=== PATIENT | female | born 1955 | race Caucasian/White ===

== ENCOUNTER → 2019-03-24 09:31 | Outpatient (CLI) | payer OTHER, SELFPAY ==
[2019-03-24 10:10] LABS: Add Manual Diff / Slide Review NO; Basophils Absolute Auto 0 /uL (0-100); Basophils Percent Auto 0.5 % (0-2); Eosinophils Absolute Auto 200 /uL (0-450); Eosinophils Percent Auto 4.6 % (2-4); Hematocrit 41.7 % (36-46); Hemoglobin 14.1 g/dL (12.0-16.0); Lymphocytes Absolute Auto 1600 /uL (1100-4500); Mean Corpuscular HGB Conc 33.9 % (30-36); Mean Corpuscular Hemoglobin 31.2 PG (26-34); Mean Corpuscular Volume 92.1 fL (80-100); Monocytes Absolute Auto 300 /uL (0-900); Monocytes Percent Auto 6.9 % (3-14); Neutrophils Absolute Auto 2100 /uL (1500-7000); Platelet Count 222 X10^3/uL (150-400); Red Blood Cell Count 4.53 X10^6/uL (4.0-5.2); Red Cell Distribution Width 12.5 % (11.6-14.8); White Blood Cell Count 4.2 X10^3/uL (4.5-11.0)
[2019-03-24 10:47] LABS: Albumin 4.5 g/dL (3.5-5.0); Albumin Globulin Ratio 1.6 (1.0-2.8); Alkaline Phosphatase 76 U/L (38-126); Aspartate Aminotransferase 27 IU/L (14-36); BUN Creatinine Ratio 25.7 (6-22); Bilirubin Total 0.6 mg/dL (0.2-1.3); Blood Urea Nitrogen 18 mg/dL (7-17); Calcium 9.8 mg/dL (8.4-10.2); Carbon Dioxide 30 mmol/L (22-32); Chloride 100 mmol/L (98-107); Cholesterol 250 mg/dL (140-199); Estimated Glomerular Filt Rate > 60.0 mL/min (>60); Globulin 2.9 g/dL (1.7-4.1); Glucose 93 mg/dL (80-110); HDL Cholesterol 91 mg/dL (40-60); HEMOLYSIS < 15 (0-50); LDL Cholesterol Calculated 136 mg/dL (<100); Magnesium 2.2 mg/dL (1.6-2.3); Potassium 4.2 mmol/L (3.4-5.1); Sodium 138 mmol/L (137-145); Total Protein 7.4 g/dL (6.3-8.2); Triglycerides 115 mg/dL (35-150)
[2019-03-24 10:58] LABS: Alanine Aminotransferase 7 IU/L (9-52)
[2019-03-24 11:02] LABS: Vitamin D 25 Hydroxy (D3) 35.9 ng/mL (30.0-100.0)
[2019-03-24 11:05] LABS: Appearance Urine UA CLEAR; Bilirubin Urine UA NEGATIVE (NEGATIVE); Glucose Urine UA NEGATIVE (Negative); Ketones Urine UA NEGATIVE (NEGATIVE); Leukocyte Esterase Urine UA NEGATIVE (NEGATIVE); Nitrite Urine UA NEGATIVE (Negative); Occult Blood Urine UA TRACE-LYSED (Negative); Protein Urine UA NEGATIVE (Negative); Specific Gravity Urine UA <=1.005 (1.000-1.035); Urobilinogen Urine UA 0.2 E.U./dL (0.2)
[2019-03-24 11:27] LABS: Color Urine UA Straw
[2019-03-24 11:45] LABS: Bacteria Urine Few (2-10); Culture Indicated Urine Cult Not Indicated; RBC Urine 0-1/HPF (0-5/HPF); Squamous Epithelial Cell Urine 0-1 /HPF (0-5/HPF); WBC Urine 0-1/HPF (0-5/HPF)
[2019-03-26 14:40] LABS: Ionized Calcium 5.1 mg/dL (4.8-5.6)
[2019-03-26 15:29] LABS: Parathyroid Hormone Int 59 pg/mL (14-64)
== END ==
PROVIDERS: Visit Provider Internal Medicine
DX: Z00.00 Encounter for general adult medical examination without abnormal findings (principal); E83.52 Hypercalcemia; R03.0 Elevated blood-pressure reading, without diagnosis of hypertension; E78.5 Hyperlipidemia, unspecified; E55.9 Vitamin D deficiency, unspecified; R53.83 Other fatigue
CPT/HCPCS: 36415; 80053; 80061; 81001; 82306; 82330; 83735; 83970; 85025

== ENCOUNTER → 2019-07-28 11:13 | Outpatient (CLI) | payer OTHER, SELFPAY ==
--- NOTE | 2019-07-28 | DI.MG.S_ITS ---
BILATERAL DIGITAL SCREENING MAMMOGRAM 3D/2D WITH CAD: 07/28/2019 CLINICAL: Routine screening. Comparison is made to exams dated: 04/25/2012 mammogram and 04/25/2015 mammogram - [facility]. The tissue of both breasts is extremely dense, which lowers the sensitivity of mammography. Current study was also evaluated with a Computer Aided Detection (CAD) system. No significant masses, calcifications, or other findings are seen in either breast. There has been no significant interval change. IMPRESSION: NEGATIVE There is no mammographic evidence of malignancy. A 1 year screening mammogram is recommended. This exam was interpreted at Station ID: [id number]. NOTE: For mammograms, a report in lay terms will be sent to the patient. Approximately 15% of breast malignancies will not be visualized mammographically. In the management of a palpable breast mass, a negative mammogram must not discourage biopsy of a clinically suspicious lesion. Electronically Signed By: Holly nguyen/sylvie:07/28/2019 12:22:51 letter sent: Normal Exam ACR BI-RADS Category 1: Negative [id number]
== END ==
PROVIDERS: PCP Internal Medicine; Visit Provider Internal Medicine
DX: Z12.31 Encounter for screening mammogram for malignant neoplasm of breast (principal)
CPT/HCPCS: 77063; 77067

== ENCOUNTER → 2020-03-14 08:57 | Outpatient (CLI) | payer OTHER, SELFPAY ==
[2020-03-14 09:23] LABS: Add Manual Diff / Slide Review NO; Basophils Absolute Auto 0 /uL (0-100); Basophils Percent Auto 0.4 % (0-2); Eosinophils Absolute Auto 200 /uL (0-450); Eosinophils Percent Auto 3.7 % (2-4); Hematocrit 42.5 % (36-46); Hemoglobin 14.2 g/dL (12.0-16.0); Lymphocytes Absolute Auto 1400 /uL (1100-4500); Mean Corpuscular HGB Conc 33.4 % (30-36); Mean Corpuscular Hemoglobin 30.9 PG (26-34); Mean Corpuscular Volume 92.4 fL (80-100); Monocytes Absolute Auto 400 /uL (0-900); Monocytes Percent Auto 7.7 % (3-14); Neutrophils Absolute Auto 2600 /uL (1500-7000); Neutrophils Percent Auto 57.2 % (50-75); Platelet Count 229 X10^3/uL (150-400); Red Cell Distribution Width 12.5 % (11.6-14.8); White Blood Cell Count 4.6 X10^3/uL (4.5-11.0)
[2020-03-14 09:48] LABS: Alanine Aminotransferase 9 IU/L (<35); Albumin 4.6 g/dL (3.5-5.0); Albumin Globulin Ratio 1.4 (1.0-2.8); Alkaline Phosphatase 76 U/L (38-126); Aspartate Aminotransferase 27 IU/L (14-36); BUN Creatinine Ratio 19.1 (6-22); Bilirubin Total 0.8 mg/dL (0.2-1.3); Blood Urea Nitrogen 13 mg/dL (7-17); Calcium 9.5 mg/dL (8.4-10.2); Carbon Dioxide 30 mmol/L (22-32); Chloride 99 mmol/L (98-107); Cholesterol 251 mg/dL (140-199); Estimated Glomerular Filt Rate > 60.0 mL/min (>60); Globulin 3.2 g/dL (1.7-4.1); Glucose 111 mg/dL (80-110); HDL Cholesterol 84 mg/dL (40-60); HEMOLYSIS < 15 (0-50); LDL Cholesterol Calculated 138 mg/dL (<100); Potassium 4.1 mmol/L (3.4-5.1); Sodium 136 mmol/L (137-145); Total Protein 7.8 g/dL (6.3-8.2); Triglycerides 145 mg/dL (35-150)
[2020-03-14 09:59] LABS: Vitamin D 25 Hydroxy (D3) 36.3 ng/mL (30.0-100.0)
== END ==
PROVIDERS: PCP Internal Medicine; Referring Provider Internal Medicine; Visit Provider Internal Medicine
DX: E78.6 Lipoprotein deficiency (principal); E55.9 Vitamin D deficiency, unspecified; R03.0 Elevated blood-pressure reading, without diagnosis of hypertension; E78.5 Hyperlipidemia, unspecified
CPT/HCPCS: 36415; 80053; 80061; 82306; 85025

== ENCOUNTER → 2020-05-10 13:44 | Outpatient (CLI) | payer OTHER, SELFPAY | PROVIDERS: PCP Internal Medicine; Referring Provider Internal Medicine; Visit Provider Internal Medicine | DX: Z13.820 Encounter for screening for osteoporosis (principal); M85.851 Other specified disorders of bone density and structure, right thigh; Z78.0 Asymptomatic menopausal state; Z87.891 Personal history of nicotine dependence; Z82.62 Family history of osteoporosis | CPT/HCPCS: 77080 ==

== ENCOUNTER → 2020-12-20 16:32 | Outpatient (CLI) | payer OTHER, SELFPAY ==
[2020-12-20 18:26] LABS: Hemoglobin A1C% w Est Avg Glu 5.2 % (4.0-6.0)
[2020-12-20 18:39] LABS: Alanine Aminotransferase 8 IU/L (<35); Albumin 4.5 g/dL (3.5-5.0); Albumin Globulin Ratio 1.4 (1.0-2.8); Alkaline Phosphatase 90 U/L (38-126); Aspartate Aminotransferase 29 IU/L (14-36); BUN Creatinine Ratio 25.3 (6-22); Bilirubin Total 0.4 mg/dL (0.2-1.3); Blood Urea Nitrogen 20 mg/dL (7-17); Carbon Dioxide 30 mmol/L (22-32); Chloride 101 mmol/L (98-107); Estimated Glomerular Filt Rate > 60.0 mL/min (>60); Globulin 3.3 g/dL (1.7-4.1); Glucose 79 mg/dL (80-110); HEMOLYSIS < 15 (0-50); Potassium 4.1 mmol/L (3.4-5.1); Sodium 140 mmol/L (137-145); Total Protein 7.8 g/dL (6.3-8.2)
== END ==
PROVIDERS: PCP Internal Medicine; Referring Provider Internal Medicine; Visit Provider Internal Medicine
DX: E78.2 Mixed hyperlipidemia (principal); R73.9 Hyperglycemia, unspecified
CPT/HCPCS: 36415; 80053; 83036

== ENCOUNTER → 2020-12-21 06:57 | Outpatient (CLI) | payer OTHER, SELFPAY ==
[2020-12-22 22:53] LABS: TSH w/ Reflex to FT4 2.54 uIU/mL (0.47-4.68)
== END ==
PROVIDERS: PCP Internal Medicine; Visit Provider Internal Medicine
DX: R00.2 Palpitations (principal)
CPT/HCPCS: 84443

== ENCOUNTER → 2021-02-20 08:41 | Outpatient (CLI) | payer OTHER, SELFPAY ==
[2021-02-20 10:06] LABS: Cholesterol 239 mg/dL (140-199); HDL Cholesterol 74 mg/dL (40-60); LDL Cholesterol Calculated 125 mg/dL (<100); Triglycerides 202 mg/dL (35-150)
== END ==
PROVIDERS: PCP Internal Medicine; Referring Provider Internal Medicine; Visit Provider Internal Medicine
DX: M85.89 Other specified disorders of bone density and structure, multiple sites (principal); Z13.220 Encounter for screening for lipoid disorders; Z13.6 Encounter for screening for cardiovascular disorders
CPT/HCPCS: 36415; 80061; 82306

== ENCOUNTER → 2021-03-14 10:59 | Outpatient (CLI) | payer OTHER, SELFPAY ==
[2021-03-14 12:08] LABS: COVID19 -Nasal RAPID Negative (Negative)
== END ==
PROVIDERS: PCP Internal Medicine; Visit Provider Physician Assistant
DX: Z20.822 Contact with and (suspected) exposure to COVID-19 (principal); J02.9 Acute pharyngitis, unspecified
CPT/HCPCS: 87635

== ENCOUNTER 2022-02-08 13:41 | Emergency (ER) | payer MEDICARE, SELFPAY ==
[2022-02-08] VITALS (11 sets, daily range): BP systolic 184–219; BP diastolic 81–93; PULSE 92–132; RESP 11–28; TEMP 36.1; O2SAT 90–99; BMI 25.2
--- NOTE | 2022-02-08 13:57 | DI.RAD.S_ITS ---
PROCEDURE: XR ELBOW LT INDICATIONS: fall bilateral elbow pain TECHNIQUE: 1 lateral view of the left elbow was acquired. COMPARISON: [facility], CR, XR ELBOW RT 2V, 02/08/2022, 19:12. FINDINGS: Bones: There is a prominent displaced proximal ulnar fracture, with dislocation, with the radial head seen inferior and slightly posterior to the epicondyles. Soft tissues: Associated soft tissue swelling is seen. IMPRESSION: Prominent left proximal ulna fracture, with dislocation. Dictated by: Damian Coy M.D. on 02/08/2022 at 18:54 Approved by: Damian Coy M.D. on 02/08/2022 at 18:55
--- NOTE | 2022-02-08 13:57 | DI.RAD.S_ITS ---
PROCEDURE: XR ELBOW INDICATIONS: fall bilateral elbow pain TECHNIQUE: 1 views of the elbow were acquired. COMPARISON: [facility], CR, XR ELBOW LT 2V, 02/08/2022, 19:12. FINDINGS: Bones: There is a comminuted, prominently displaced fracture of the olecranon. Soft tissues: Associated soft tissue swelling is seen. IMPRESSION: Prominent displaced, comminuted fracture of the olecranon, with associated soft tissue swelling. Dictated by: Damian Coy M.D. on 02/08/2022 at 18:52 Approved by: Damian Coy M.D. on 02/08/2022 at 18:53
[2022-02-08] MEDS: MORPHINE 4 MG/ML INJ IV (18:14)
[2022-02-08] MEDS: ONDANSETRON 4 MG/2 ML INJ IV ×2 (18:15→23:35)
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
--- NOTE | 2022-02-08 20:51 | PC.NURSE ---
Patient and family updated on plan of care, requesting diagnosis information, educated on wait for physician read. Understanding verbalized. Pt family asking if pt should be drinking fluids, educated on hold until results and physician approval.
[2022-02-08] MEDS: propofoL 200 MG/20 ML VIAL 93 MG IV (23:48)
[2022-02-08] MEDS: KETAMINE 500 MG/5 ML INJ 93 MG IV (23:48)
--- NOTE | 2022-02-08 23:54 | DI.RAD.S_ITS ---
PROCEDURE: XR ELBOW LT 2V INDICATIONS: Status post reduction TECHNIQUE: 2 views of the elbow were acquired. COMPARISON: [facility], CR, XR ELBOW LT 2V, 02/08/2022, 19:12. FINDINGS: Displaced fracture of the ulna. Persistent complete dislocation of the radius. Suspected fracture of the radial head. Large elbow joint effusion. Circumferential soft tissue swelling. IMPRESSION: Persistent fracture dislocation of the ulna and radius with unchanged fractures of the ulna and suspected fracture of the radial head. Dictated by: Samm Murphy M.D. on 02/09/2022 at 0:12 Approved by: Samm Murphy M.D. on 02/09/2022 at 0:14
[2022-02-09] VITALS (13 sets, daily range): BP systolic 142–212; BP diastolic 69–108; PULSE 82–132; RESP 9–25; O2SAT 95–100
--- NOTE | 2022-02-09 00:05 | PC.NURSE ---
At this time, pt is 15min post-sedation and is alrt and oriented, although still tripping from the meds, per pt report. Pt weaned off oxygen, to bedside.
--- NOTE | 2022-02-09 00:16 | DI.CT.S_ITS ---
PROCEDURE: CT UE LT WO CON INDICATIONS: complex fracture TECHNIQUE: Noncontrast 1-1.5 mm axial sections were acquired through the elbow joint, with coronal and sagittal reformats. COMPARISON: None. FINDINGS: Comminuted and displaced intra-articular fracture of the posterior ulna and olecranon with intra-articular extension. Partial dislocation of the distal humeral articular surface there is also dislocation of the radial head without radial fracture. A tiny intra-articular loose body is seen posterior to the humerus on series 3 image 164. There is another tiny fracture fragment measuring 4 mm on series 3, image 124. IMPRESSION: Ulnohumeral and radial humeral dislocation with comminuted and displaced posterior ulnar fractures involving the olecranon and articular surface. Dictated by: Samm Murphy M.D. on 02/09/2022 at 1:49 Approved by: Samm Murphy M.D. on 02/09/2022 at 1:53
--- NOTE | 2022-02-09 01:12 | PC.NURSE ---
Pt VS trending back to normal, pt able to maintain airway on RA. Pt feels like she is back to normal cognition, agrees. Pt reports moderate/severe pain in left arm. Pt to go to CT soon.
[2022-02-09] MEDS: OXYCODONE/ACETAMINOPHEN 5/325 TABLET 1 TAB PO (01:52)
--- NOTE | 2022-02-09 03:13 | PC.NURSE ---
Pt tolerated walking in hallway roughly 40ft withoutcomplaint. Pt remains at 7-8/10 pain, but reports she thinks she can manage this at home with pain medications, rest, and ice. Pt denies dizziness/lightheadedness, VS stable on RA.
[2022-02-09] MEDS: OXYCODONE/APAP 5/325 PREPACK 1 BOTTLE MISC (03:21)
[2022-02-09] MEDS: ONDANSETRON 4 MG ODT PREPACK 1 BOTTLE MISC (03:21)
== END 2022-02-09 03:38 | disposition home or self-care (01) ==
PROVIDERS: Emergency Provider Emergency Medicine; PCP Internal Medicine
DX: S52.021A Displaced fracture of olecranon process without intraarticular extension of right ulna, initial encounter for closed fracture (principal); W19.XXXA Unspecified fall, initial encounter
CPT/HCPCS: 24620; 29105; 36415; 73070; 73200; 96374; 96375; 96376; 99152; 99284; 99285; J2270; J2405; J2704

== ENCOUNTER → 2022-02-13 11:20 | Outpatient (CLI) | payer MEDICARE, SELFPAY ==
[2022-02-13 12:23] LABS: COVID19 -Nasal RAPID Negative (Negative)
== END ==
PROVIDERS: PCP Internal Medicine; Referring Provider Orthopaedic Surgery Foot and Ankle Surgery; Visit Provider Orthopaedic Surgery Foot and Ankle Surgery
DX: Z20.822 Contact with and (suspected) exposure to COVID-19 (principal)
CPT/HCPCS: 87635; C9803

== ENCOUNTER 2022-02-15 10:43 | Day surgery (SDC) | payer MEDICARE, SELFPAY ==
[2022-02-15] VITALS (8 sets, daily range): BP systolic 169–189; BP diastolic 82–101; PULSE 100–114; RESP 11–28; TEMP 36.1–36.6; O2SAT 97–99; BMI 25.2
[2022-02-15] MEDS: LACTATED RINGERS 1,000 ML 42 ML IV ×3 (11:49→16:52)
--- NOTE | 2022-02-15 12:09 | PM.PREOP ---
Pre-operative Note COVID-19 COVID-19 status: Negative Interval Note History & Physical reviewed/Exam performed by Physician: Yes Changes to H&P: No
--- NOTE | 2022-02-15 12:30 | DI.RAD.S_ITS ---
PROCEDURE: XR ELBOW LT MIN 3V INDICATIONS: FX REPAIR TECHNIQUE: 4 spot fluoroscopic intraoperative images of the elbow were acquired. COMPARISON: [facility], CR, XR ELBOW RT MIN 3V, 02/15/2022, 15:11. [facility], CR, XR ELBOW LT 2V, 02/08/2022, 23:34. FINDINGS: Spot fluoroscopic intraoperative images demonstrate olecranon fracture fixation with a posterior plate and screw construct. Alignment of osseous structures has improved when compared to the preoperative exam. IMPRESSION: Status post internal fixation of the previously seen proximal ulnar fracture with improved alignment. Dictated by: Jonn Jung M.D. on 02/16/2022 at 9:12 Approved by: Jonn Jung M.D. on 02/16/2022 at 9:14
[2022-02-15] MEDS: CEFAZOLIN 2 GM IN 0.9 % NACL 100 ML IV (13:00)
--- NOTE | 2022-02-15 13:39 | SUR.OPER ---
Prone on padded OR bed, head in foam head support, gel chest rolls, gel pad under knees, pillow under lower legs, toes free of pressure, arms draped free on padded arm boards at <90 degrees abduction. Safety belt at thigh. tape over lower legs
[2022-02-15] MEDS: BUPIVACAINE 0.5% W/ EPI (PF) 30 ML VIAL INJ (13:51)
--- NOTE | 2022-02-15 14:30 | DI.RAD.S_ITS ---
PROCEDURE: XR ELBOW RT MIN 3V INDICATIONS: RT FX ELBOW FX REPAIR TECHNIQUE: 5 intraoperative views of the elbow were acquired. COMPARISON: None. FINDINGS: Bones: ORIF of the olecranon has been performed. Alignment is nearly anatomic. No suspicious bony lesions. Soft tissues: No suspicious soft tissue calcifications. IMPRESSION: ORIF of the olecranon. Dictated by: Jerson Vera M.D. on 02/15/2022 at 16:23 Transcribed by: LYNNE on 02/15/2022 at 16:23 Approved by: Jerson Vera M.D. on 02/15/2022 at 16:57
[2022-02-15] MEDS: hydrOXYzine pamoate 25 MG CAPSULE PO (16:56)
[2022-02-15] MEDS: OXYCODONE IR 5 MG TABLET PO ×2 (16:56→17:22)
[2022-02-15] MEDS: ONDANSETRON 4 MG/2 ML INJ IV (16:56)
[2022-02-15] MEDS: HYDROMORPHONE 2 MG INJ IV (16:57)
--- NOTE | 2022-02-15 17:10 | P.OP_ITS ---
Operative Date/Time/Diagnoses Date of procedure: 02/15/22 Time of procedure: 13:00 Pre-op diagnosis: 1. Left closed Monteggia fracture dislocation S52.272A--LT 2. Right olecranon fracture S52.021A--RT Post-op diagnosis: same Procedure & Clinicians Procedure: 1. Open reduction internal fixation Monteggia fracture, left CPT code 60802 2. Open reduction internal fixation olecranon fracture, right CPT code 23149 Same procedure as scheduled: Yes Indications: The patient is a 66-year-old ambidextrous female that sustained right and left elbow injuries in a ground level fall. She sustained a displaced left Monteggia fracture dislocation with fracture of the proximal left ulna and dislocation posteriorly of the radial head. And she sustained a displaced olecranon fracture of the right elbow. She was seen and [facility] and splinted. She presents today for open reduction internal fixation of her left and her right elbow fractures. We discussed surgery benefits to restore alignment, joint reduction and help return of function and reduce the risk of posttraumatic arthritis and dysfunction. The risks and benefits of the procedure have been discussed with the patient given the opportunity to ask questions. The risks of surgery include but are not limited to infection, malunion, nonunion, persistence of pain, damage to nerves and blood vessels, posttraumatic arthritis, DVT, PE, cardiopulmonary complications and . The patient expressed a thorough understanding of the risks and benefits of surgery and has elected to proceed. Consent was signed in the office. Surgeon: Dione Nye Click Yes if Unassisted: Yes Anesthesia Type: General and Local Operative Notes Findings: Left elbow: Displaced proximal ulna fracture and posterior radial head dislocation. On positioning intraoperatively radial head was able to be reduced. After the ulna fracture was exposed this was clamped in place and fixed with a [employer] Evos 5 hole locking plate. Once the ulna fracture was secured the radial head was noted to be concentrically reduced. The elbow was taken through range of motion. Full pronation supination flexion and extension were achieved without any mechanical blocks. Right elbow: Displaced olecranon fracture was exposed and cleaned. There was comminution of the olecranon this was reduced and held with wires and clamps. A 3 hole [employer] [place] olecranon plate was placed to the bone the split in the triceps. The separate smaller lateral comminuted fragment was then secured with a inter frag screws 2.0. Once this was completed remainder of the locking and nonlocking screws were placed. The elbow was taken through range of motion and no mechanical blocks demonstrated. At anatomic alignment was restored. Closure Type: primary Specimen(s): none sent Prosthetic devices, grafts, tissues, transplants, or devices: Left elbow: Townsend [employer] nephew evos 5 hole olecranon plate, left 3.5 locking screws: 16 mmx1 3.5 nonlocking screws: 14 mm, 15 mm, 26 mm 2.7 nonlocking screw 26 mm 2.7 locking screw 13 mm, 15 mm Right elbow [employer] Evos 3 hole olecranon plate, right 3.5 locking screws 20mmx1 3.5 nonlocking screw 20 mm x 1 2.7 nonlocking screw 20 mm x 1 2.7 locking screws 18 mm, 20 mm, 40 mm Estimated Blood Loss (mL): 50 Blood products transfused: none Tourniquet time (min): 53 Procedure in detail: Patient was seen in the preoperative area the site of surgery marked informed consent confirmed. She was brought back to operating room by anesthesia team positioned supine on the operative table. General anesthetic was administered. Attention was 1st turned to the left Monteggia fracture dislocation. Patient was positioned into the prone position on the operative table. All bony prominences well padded. A well-padded nonsterile brachial tourniquet was placed. The left arm was draped over a radiolucent arm board and stack of blankets. Once the patient was secured the C-arm was brought in to make sure we could get appropriate imaging. Once this was completed. A Formal time-out procedure was performed confirming the patient's side and site of surgery and is administration of appropriate preoperative antibiotic. All were in agreement. Implants were in the room accounted for. Attention turned to the left arm. The Esmarch was used for exsanguination the tourniquet raised on the arm to 250 mmHg and stayed there for 53 minutes. A typical posterior approach the left groin on was taken this was midline through the distal triceps and a curved around the olecranon laterally and then continued along the subcutaneous border of the ulna distally. Incision was taken down through the skin subcutaneous tissues. The olecranon bursa was retracted medially. The fracture of the proximal ulna was exposed through the interval between the ECU and FCU. The fracture was cleaned and then reduced and clamped in place. C-arm confirmed on reduction of the ulna the radial head also was reduced to the capitellum in the AP and lateral planes. Next the 5 hole left side olecranon plate from the Evos set was fit to the fracture this was appropriate length. The triceps was split and the proximal and the plate was fit under this and provisionally secured to the bone. Then a nonlocking screw was placed proximally followed by compression through the oblong hole distally in the shaft. Next additional nonlocking and locking screws were placed to secure the fracture. Once this was completed final x-rays AP and lateral were obtained. A full prone supination was possible and there were no mechanical blocks and the radial head was stable. The tourniquet was released hemostasis was achieved. The wound was closed with 2-0 Vicryl, 4-0 Monocryl and deisy. 0.25% Marcaine with epinephrine was infiltrated for local anesthetic. An Aquacel dressing and posterior splint were placed. The drapes were removed the table was turned and then we were redraped for the separate right-sided procedure. After the left arm surgery was completed the patient was redraped on the table for the right arm with the right arm over a radiolucent arm table and stack of blankets. A nonsterile brachial tourniquet was placed. The patient was redraped after prepping of the arm. It is similar standard posterior approach to the olecranon was undertaken on the right side curving laterally around the olecranon and continue along subcutaneous border of the ulna. This was taken down through the skin subcutaneous tissues. The comminuted olecranon fracture was exposed. Fracture hematoma was cleaned. Combination of reduction clamps and K-wires were then used to reduce the fracture. There was a separate lateral comminuted piece that was secured with a separate K-wire and then an inter frag 2.7 screw. A 3 hole Rand [place] olecranon plate was then fit to the bone in the same split through the triceps as on the contralateral side this was secured 1st with a nonlocking screw proximally and then additional compression through the oblong hole distally once this was completed additional locking screws were added. The proximal nonlocking screw was then found to be loose and was exchanged for a locking screw. Once this was completed articular reduction was confirmed on x-rays and appropriate alignment on AP oblique and lateral views. Full pro supination was completed there were no mechanical blocks. At this point tourniquet was released hemostasis was achieved and the wound was closed with 2-0 Vicryl, 4-0 Monocryl, deisy. 0.25% Marcaine with epinephrine was infiltrated as local anesthetic. An Aquacel dressing was placed and a posterior splint was placed. Drapes removed the patient was woken from anesthesia and taken to recovery room in good condition. There no immediate complications from this procedure. All counts were correct. Complications: none Post-operative Condition: stable Disposition: PACU Plan for aftercare: Nonweightbearing or max 1 lb lifting both extremities. Remain in splint. May do wrist and finger range of motion as tolerated. Follow-up in 2 weeks in [facility] for staple removal and x-rays. Keep splint clean dry and intact.
== END 2022-02-15 18:26 | disposition home or self-care (01) ==
PROVIDERS: PCP Internal Medicine; Referring Provider Orthopaedic Surgery Foot and Ankle Surgery; Visit Provider Orthopaedic Surgery Foot and Ankle Surgery
PROC: 0RSM04Z Reposition Left Elbow Joint with Internal Fixation Device, Open Approach (ICD-10-PCS; CPT 24635; principal; 2022-02-15 12:15)
DX: S52.272A Monteggia's fracture of left ulna, initial encounter for closed fracture (principal); S52.021A Displaced fracture of olecranon process without intraarticular extension of right ulna, initial encounter for closed fracture; W01.0XXA Fall on same level from slipping, tripping and stumbling without subsequent striking against object, initial encounter; Y93.01 Activity, walking, marching and hiking; Y92.89 Other specified places as the place of occurrence of the external cause
CPT/HCPCS: 24635; 24685; 73080; 76000; J0690; J1100; J1170; J2250; J2405; J2704; J3010

== ENCOUNTER → 2023-08-07 14:51 | Outpatient (CLI) | payer OTHER, SELFPAY ==
--- NOTE | 2023-08-07 14:53 | DI.RAD.S_ITS ---
Bone Density Report Name: BILL ARTHUR Age: 68 Sex: Female Ethnicity: White Date of : 1955 Indication: osteopenia; Referring Provider: BHAVESH COBIAN Study: Bone densitometry was performed. Exam Date: August 07, 2023 Accession number: [id number] Bone Density: Region BMD T-score Z-score Classification AP Spine(L1-L4) 0.712 -3.0 -1.1 Osteoporosis Femoral Neck (Left) 0.557 -2.6 -1.0 Osteoporosis Total Hip (Left) 0.700 -2.0 -0.7 Osteopenia Femoral Neck (Right) 0.560 -2.6 -1.0 Osteoporosis Total Hip (Right) 0.681 -2.1 -0.8 Osteopenia Total Hip Mean 0.690 -2.1 -0.8 Osteopenia World Health Organization criteria for BMD impression classify patients as: Normal (T-score at or above -1.0), Osteopenia (T-score between -1.0 and -2.5), or Osteoporosis (T-score at or below -2.5). 10-year Fracture Risk: FRAX not reported because: Some T-score for Spine Total or Hip Total or Femoral Neck at or below -2.5 Previous Exams: -- Region Exam Age BMD T-score BMD Change BMD Change Date g/cm2 vs Baseline vs Previous -- AP Spine (L1-L4) 08/07/2023 68 0.712 -3.0 -0.102 (-12.5%)# -0.102 (-12.5%)# 05/10/2020 64 0.814 -2.1 Total Hip(Left) 08/07/2023 68 0.700 -2.0 -0.017 (-2.3%)# -0.017 (-2.3%)# 05/10/2020 64 0.716 -1.9 Total Hip(Right) 08/07/2023 68 0.681 -2.1 -0.029 (-4.1%)# -0.029 (-4.1%)# 05/10/2020 64 0.710 -1.9 -- *Denotes significance at 95% confidence level, LSC for AP Spine = 0.022 g/cm2, LSC for Total Hip = 0.027 g/cm2 # Denotes dissimilar scan types or analysis methods Impression: The patient has osteoporosis, based on the Total Spine T-score. No significant bone loss was observed. Discussion: INCREASED RISK OF FRACTURE. BONE DENSITY IS UNDESIRABLY LOW AT ONE OR MORE SKELETAL SITES, CONSISTENT WITH POSTMENOPAUSAL OSTEOPOROSIS. This patient's lowest T-score meets the World Health Organization's (WHO) criteria for osteoporosis at one or more sites (T-score -2.5 or below). In untreated patients, the risk of osteoporotic fracture increases approximately two-fold for each 1.0 SD decrease in T-score. Low bone density is not the only risk factor for fracture; also consider factors such as patient's age, frailty or poor health, risk of falling, risk of injury, previous osteoporotic fracture, family history of osteoporosis, cigarette smoking, low body weight, etc. Not everyone with low bone mineral density has osteoporosis; osteomalacia and other metabolic bone disorders should also be considered. Patients who have osteoporosis should be evaluated for specific diseases and conditions (secondary causes) that may cause or contribute to bone loss. The [place] [employer]ocrinologists (AACE) and National Osteoporosis Foundation (NOF) recommend pharmacologic intervention for all postmenopausal women whose T-score is in this range. The patient should follow a healthful lifestyle (good nutrition with adequate calcium and vitamin D, and appropriate weight-bearing exercise). Follow-Up: Consider a repeat BMD and Vertebral Fracture Assessment (VFA) exam in 2 years or sooner if medically necessary, to reassess this patient's status. Reported by: ANNA BRADY MD on 08/07/2023 3:31:00 PM.
== END ==
PROVIDERS: PCP Internal Medicine; Referring Provider Internal Medicine; Visit Provider Internal Medicine
DX: M81.0 Age-related osteoporosis without current pathological fracture (principal)
CPT/HCPCS: 77080

== ENCOUNTER 2023-08-13 06:49 | Day surgery (SDC) | payer OTHER, SELFPAY ==
[2023-08-13] MEDS: LACTATED RINGERS 1,000 ML 42 ML IV (07:13)
[2023-08-13 07:38] VITALS: BP 157/90; PULSE 103; RESP 19; TEMP 36.3; O2SAT 98
--- NOTE | 2023-08-13 07:49 | PM.HP.1 ---
History of Present Illness History of Present Illness Date Patient Seen: 08/13/23 Time Patient Seen: 07:49 Chief complaint: Screening Colonoscopy Narrative: 68-year-old woman here for screening colonoscopy. Last colonoscopy 13 years ago normal. No family history of intestinal malignancy. No abdominal concerns today. [facility] Medical History Fracture of olecranon process, left, closed Closed fracture of right olecranon process Neuroma Osteopenia Shoulder pain (~2013) Ankle fracture (~2000) Meningitis (~1977) Fibroids Surgical History Anesthesia History of removal of cyst (~1992) Family History Mother Pancreatic cancer Stroke Grandfather Lung cancer Brother AIDS Grandfather Cancer Grandmother Stroke Social History household members: spouse Smoking Status: Former smoker alcohol intake: current Meds Home Medications and Allergies Home Medications Medication Instructions Recorded Confirmed Type cholecalciferol (vitamin D3) 125 125 mcg PO 3XW 05/09/23 08/13/23 History mcg (5,000 unit) capsule silver sulfadiazine 1 % topical 1 applic topical BID #50 grams 05/29/23 Rx cream sodium,potassium,mag sulfates 17.5 See Rx Instructions PO .COMPLEX 05/31/23 Rx gram-3.13 gram-1.6 gram oral soln #354 mL (Suprep Bowel Prep Kit) Allergies Allergy/AdvReac Type Severity Reaction Status Date / Time codeine Allergy Mild nightmares Verified 08/13/23 07:36 Exam Vital Signs (past 8 hours): - 08/13/23 07:38 Temperature 97.3 F L Pulse Rate 103 H Respiratory Rate 19 Blood Pressure 157/90 H Pulse Oximetry 98 Oxygen Delivery Method Room Air Oxygen Delivery Method Room Air Narrative Exam Narrative: General adult woman alert oriented no acute distress Chest nonlabored respiration Extremities warm well perfused Assessment & Plan Assessment & Plan narrative: The patient requires colorectal screening and colonoscopy is recommended. Technical details were discussed. Risks, benefits, alternatives explained. Risks including but not limited to myocardial infarction, aspiration, bleeding, pain, missed lesion, incomplete examination, need for further radiographic studies, colonic perforation, and need for major abdominal surgery were discussed. All questions were answered to their satisfaction, and they are in agreement with this plan.
[2023-08-13 08:13] VITALS: BP 111/64; PULSE 74; RESP 14; TEMP 36.6; O2SAT 97
[2023-08-13 08:17] VITALS: BP 108/64; PULSE 74; RESP 15; O2SAT 97
--- NOTE | 2023-08-13 08:18 | P.OP.COLON_ITS ---
Operative Date/Time/Diagnoses Date of procedure: 08/13/23 Time of procedure: 08:18 Pre-op diagnosis: Colorectal screening Procedure & Clinicians Study performed: Colonoscopy Same procedure as scheduled: Yes Indications: Colorectal screening Surgeon: Nate Shelton Procedure Notes Procedure in detail: The history and physical was performed/updated and the patient is ASA class is 2. The procedure was discussed in detail with the patient. Potential risks complications including infection, bleeding, missed diagnosis, perforation, need for surgery, and were explained. Their questions were answered and informed consent was obtained. Patient was brought to the procedure room and placed standard monitoring equipment. The patient's vital signs were monitored continuously throughout the entire procedure. Prior to starting time-out was performed. The patient was placed in the left lateral recumbent position. Procedural sedation was administered by anesthesia. Examination began with a thorough inspection of the perianal area there was no evidence of fissures, fistulae, external hemorrhoids or cutaneous malignancy. The colonoscopy scope was then placed into the anal canal and was advanced to the cecum, which was identified by the ileocecal valve , the appendiceal orifice and the confluence of the taenia. The scope was then slowly withdrawn examining colon thoroughly in all directions, irrigating it of any residual stool. The scope was retroflexed within the rectum The patient tolerated the procedure well. They will be discharged once criteria are met. The prep was of good/excellent quality. The withdrawl time was 7 minutes. FINDINGS * Normal colonoscopy. No masses polyps or inflammation. Specimen(s): none sent Impression: Normal colonoscopy Post-procedure Recommendations: Colonoscopy in 10 years and High fiber diet Disposition: same day surgery
[2023-08-13 08:23] VITALS: BP 113/65; PULSE 70; RESP 15; O2SAT 98
== END 2023-08-13 09:01 | disposition home or self-care (01) ==
PROVIDERS: PCP Internal Medicine; Referring Provider Surgery; Visit Provider Surgery
PROC: 0DJD8ZZ Inspection of Lower Intestinal Tract, Via Natural or Artificial Opening Endoscopic (ICD-10-PCS; CPT 45378; principal; 2023-08-13 07:45)
DX: Z12.11 Encounter for screening for malignant neoplasm of colon (principal)
CPT/HCPCS: G0121; J2250; J2704

== ENCOUNTER → 2024-09-14 14:23 | Outpatient (CLI) | payer MEDICARE, OTHER, SELFPAY ==
--- NOTE | 2024-09-14 14:26 | DI.RAD.S_ITS ---
PROCEDURE: XR CHEST 2V INDICATIONS: Cough TECHNIQUE: 2 views of the chest were acquired. COMPARISON: None. FINDINGS: Surgical changes and devices: None. Lungs and pleura: Lungs are clear. No pleural effusions or pneumothorax. Mediastinum: Mediastinal contours are normal. Heart size is normal. Bones and chest wall: No suspicious bony abnormalities. Soft tissues appear unremarkable. IMPRESSION: No acute cardiothoracic process. Dictated by: Armando Whintey M.D. on 09/14/2024 at 17:12 Approved by: Armando Whitney M.D. on 09/14/2024 at 17:12
== END ==
PROVIDERS: PCP Internal Medicine; Referring Provider Internal Medicine; Visit Provider Internal Medicine
DX: R05.9 Cough, unspecified (principal)
CPT/HCPCS: 71046

== ENCOUNTER → 2024-09-23 14:08 | Outpatient (CLI) | payer MEDICARE, OTHER, SELFPAY | PROVIDERS: PCP Internal Medicine; Referring Provider Internal Medicine; Visit Provider Internal Medicine | DX: R05.9 Cough, unspecified (principal); Z87.891 Personal history of nicotine dependence; R94.2 Abnormal results of pulmonary function studies | CPT/HCPCS: 94060; 94726; 94729 ==

== ENCOUNTER → 2025-02-16 08:58 | Outpatient (CLI) | payer MEDICARE, OTHER, SELFPAY ==
[2025-02-16 09:50] LABS: Add Manual Diff / Slide Review NO; Hematocrit 41.8 % (36-46); Hemoglobin 14.6 g/dL (12.0-16.0); Lymphocytes Absolute Auto 1600 /uL (1100-4500); Mean Corpuscular HGB Conc 34.8 % (30-36); Mean Corpuscular Hemoglobin 31.9 PG (26-34); Mean Corpuscular Volume 91.7 fL (80-100); Platelet Count 227 X10^3/uL (150-400)
[2025-02-16 10:34] LABS: Alanine Aminotransferase 12 IU/L (<35); Albumin 4.4 g/dL (3.5-5.0); Albumin Globulin Ratio 1.6 (1.0-2.8); Alkaline Phosphatase 76 U/L (38-126); Blood Urea Nitrogen 14 mg/dL (7-17); Calcium 9.5 mg/dL (8.4-10.2); Carbon Dioxide 27 mmol/L (22-32); Chloride 101 mmol/L (98-107); Cholesterol 261 mg/dL (140-199); Estimated Glomerular Filt Rate > 60 mL/min (>60); Globulin 2.8 g/dL (1.7-4.1); Glucose 103 mg/dL (70-99); HDL Cholesterol 79 mg/dL (40-60); HEMOLYSIS < 15 (0-50); Potassium 4.3 mmol/L (3.4-5.1); Sodium 136 mmol/L (137-145); Total Protein 7.2 g/dL (6.3-8.2); Triglycerides 184 mg/dL (35-150)
[2025-02-16 10:48] LABS: Vitamin D 25 Hydroxy (D3) 40.9 ng/mL (30.0-100.0)
== END ==
PROVIDERS: PCP Internal Medicine; Referring Provider Internal Medicine; Visit Provider Internal Medicine
DX: D64.9 Anemia, unspecified (principal); Z13.6 Encounter for screening for cardiovascular disorders; E55.9 Vitamin D deficiency, unspecified; Z13.1 Encounter for screening for diabetes mellitus; E78.5 Hyperlipidemia, unspecified
CPT/HCPCS: 36415; 80053; 80061; 82306; 85025